=== PATIENT | male | born 1955 | race Caucasian/White ===

== ENCOUNTER 2017-03-30 15:30 | Emergency (ER) | payer OTHER ==
[~2017-03-30] VITALS: Wt 90.9 kg
[~2017-03-30 15:30] MED LIST: AMLO-218 PO; ASPI-664 PO; BENA10TA48 PO; METF500T4 PO; METO-448 PO; PRAV10TA24 PO
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
[2017-03-30] MEDS ORDERED: ACET500C5 PO (19:31)
[2017-03-30 19:38] VITALS: BP 161/78; PULSE 74; RESP 18
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
== END 2017-03-30 19:40 | disposition home or self-care (01) ==
LOC: FTE 15:30
DX: S20.211A Contusion of right front wall of thorax, initial encounter (principal); S69.91XA Unspecified injury of right wrist, hand and finger(s), initial encounter; S39.91XA Unspecified injury of abdomen, initial encounter; I10 Essential (primary) hypertension; E11.9 Type 2 diabetes mellitus without complications; V43.53XA Car driver injured in collision with pick-up truck in traffic accident, initial encounter; Z79.82 Long term (current) use of aspirin; Z79.84 Long term (current) use of oral hypoglycemic drugs
CPT/HCPCS: 70450; 71250; 72125; 73110; 73130; 74176; 93005; Z7502